=== PATIENT | female | born 1965 | race Caucasian/White ===

== ENCOUNTER → 2016-06-26 | Outpatient (CLI) | payer BC ==
[~2016-06-26] MED LIST: EFFEXOR 75M75 MG/TAB PO; SYNTHROID0.05 MG/TA PO; TENORMIN 2525 MG/TAB PO
== END ==
LOC: MC.RAD 13:52
DX: Z12.31 Encounter for screening mammogram for malignant neoplasm of breast (principal); N64.89 Other specified disorders of breast

== ENCOUNTER → 2016-07-02 | Outpatient (CLI) | payer BC | LOC: MC.RAD 09:42 | DX: Z12.39 Encounter for other screening for malignant neoplasm of breast (principal) ==

== ENCOUNTER → 2017-01-18 | Outpatient (CLI) | payer BC | LOC: MC.RAD 01-04 07:30 | DX: Z01.89 Encounter for other specified special examinations (principal) ==

== ENCOUNTER → 2017-08-13 | Outpatient (REF) ==
[2017-08-13 18:17] LABS: C-REACTIVE PROTEIN < 0.5 mg/dL (0.0-0.9)
== END ==
LOC: ZLAB.WCH 17:46
PROVIDERS: Family Medicine
DX: Z01.89 Encounter for other specified special examinations (principal)

== ENCOUNTER → 2017-09-24 | Outpatient (REF) | LOC: ZLAB.WCH 15:57 | DX: Z01.89 Encounter for other specified special examinations (principal) ==

== ENCOUNTER → 2017-11-10 | Outpatient (REF) ==
[2017-11-10 16:35] LABS: THYROID STIMULATING HORMONE 0.047 uIU/mL (0.465-4.680)
== END ==
LOC: ZLAB.WCH 15:18
PROVIDERS: Physician Assistant
DX: Z01.89 Encounter for other specified special examinations (principal)

== ENCOUNTER → 2018-06-24 | Outpatient (REF) ==
[2018-06-24 18:01] LABS: THYROID STIMULATING HORMONE 0.022 uIU/mL (0.465-4.680)
== END ==
LOC: ZLAB.WCH 17:13
PROVIDERS: Family Medicine
DX: Z01.89 Encounter for other specified special examinations (principal)